=== PATIENT | female | born 2000 | race Caucasian/White ===

== ENCOUNTER 2024-01-20 20:05 | Emergency (ER) | payer MEDICAID ==
[~2024-01-20] VITALS: Ht 144.8 cm; Wt 51.7 kg
[2024-01-20 20:29] VITALS: BP 113/64; PULSE 64; RESP 16; TEMP 98.1; O2SAT 98
[2024-01-20] MEDS ORDERED: TOPUD MT (21:23)
[2024-01-20] MEDS ORDERED: ACETAMINOPHEN 325MG TABLET PO ONE (21:30)
== END 2024-01-21 00:56 | disposition home or self-care (01) ==
LOC: ER 20:05
DX: S69.92XA Unspecified injury of left wrist, hand and finger(s), initial encounter (principal); G96.9 Disorder of central nervous system, unspecified; W23.0XXA Caught, crushed, jammed, or pinched between moving objects, initial encounter; Y93.89 Activity, other specified; Y92.89 Other specified places as the place of occurrence of the external cause; Y99.8 Other external cause status
CPT/HCPCS: 29130; 73140; 99283